=== PATIENT | female | born 1985 | race Caucasian/White ===

== ENCOUNTER 2016-12-17 10:22 | Emergency (ER) | payer MEDICAID ==
[~2016-12-17] VITALS: Ht 172.7 cm; Wt 87.0 kg
[~2016-12-17 10:22] MED LIST: PREN1TAB27 PO
[2016-12-17] MEDS ORDERED: ACETAMINOPHEN 500 MG TABLET ONE (11:45)
[2016-12-17] MEDS ORDERED: ACETAMINOPHEN 500 MG TABLET PO ONE (12:00)
[2016-12-17 12:22] VITALS: BP 110/57
== END 2016-12-17 12:24 | disposition home or self-care (01) ==
LOC: ED 11:54
DX: M54.5 Low back pain (principal); Z90.49 Acquired absence of other specified parts of digestive tract
CPT/HCPCS: 72110; 99284

== ENCOUNTER 2017-01-29 19:14 | Emergency (ER) | payer MEDICAID ==
[~2017-01-29] VITALS: Ht 170.2 cm; Wt 86.4 kg
[2017-01-29 19:19] VITALS: BP 111/75
[2017-01-29] MEDS ORDERED: LIDOCAINE 1%, 20ML ONE (19:49)
[2017-01-29] MEDS ORDERED: BUPIVACAINE 0.25% ONE (19:49)
[2017-01-29] MEDS ORDERED: LIDOCAINE 1%, 20ML SQ ONE (20:00)
[2017-01-29] MEDS ORDERED: BUPIVACAINE/PF-EPI 0.25% 1:200K SQ ONE (20:00)
== END 2017-01-29 20:20 | disposition home or self-care (01) ==
LOC: ED 20:14
DX: L02.214 Cutaneous abscess of groin (principal); Z88.6 Allergy status to analgesic agent; Z88.2 Allergy status to sulfonamides
CPT/HCPCS: 10060

== ENCOUNTER 2017-07-23 16:09 | Emergency (ER) | payer MEDICAID ==
[~2017-07-23] VITALS: Ht 167.6 cm; Wt 91.3 kg
[2017-07-23 16:13] VITALS: BP 116/68
[2017-07-23 16:50] LABS: HEMATOCRIT 43.2 % (34.6-47.8); HEMOGLOBIN 14.5 g/dL (11.7-16.4); WHITE BLOOD COUNT 10.3 x10^3/uL (3.4-10)
[2017-07-23 17:00] LABS: BLOOD UREA NITROGEN 10 mg/dL (7-18)
[2017-07-23 17:11] LABS: ASPARTATE AMINO TRANSFERASE 9 U/L (15-37)
== END 2017-07-23 17:58 | disposition left against medical advice (07) ==
LOC: ED 17:52
DX: R56.9 Unspecified convulsions (principal)
CPT/HCPCS: 36415; 80053; 80307; 84703; 85025; 99284; G0479

== ENCOUNTER 2017-08-12 11:53 | Emergency (ER) | payer MEDICAID ==
[~2017-08-12] VITALS: Ht 170.2 cm; Wt 90.4 kg
[2017-08-12 11:58] VITALS: BP 124/76
[2017-08-12] MEDS ORDERED: SODIUM CHLORIDE FLUSH 10ML SYR IVF ONE (12:30)
[2017-08-12 12:49] LABS: HEMATOCRIT 37.6 % (34.6-47.8); HEMOGLOBIN 12.5 g/dL (11.7-16.4)
[2017-08-12 13:01] LABS: BLOOD UREA NITROGEN 12 mg/dL (7-18)
[2017-08-12 13:02] LABS: ASPARTATE AMINO TRANSFERASE 5 U/L (15-37)
[2017-08-12] MEDS ORDERED: OMNIPAQUE 350 MG/ML, 100ML BOTTLE ONE (13:46)
[2017-08-12] MEDS ORDERED: KETOROLAC 30 MG/1 ML ONE ×2 (13:47)
[2017-08-12] MEDS ORDERED: KETOROLAC 30 MG/1 ML IVPush ONE (14:00)
== END 2017-08-12 14:38 | disposition home or self-care (01) ==
LOC: ED 13:05
DX: R10.84 Generalized abdominal pain (principal); R11.0 Nausea; K59.00 Constipation, unspecified; G40.909 Epilepsy, unspecified, not intractable, without status epilepticus; Z90.49 Acquired absence of other specified parts of digestive tract; Z88.2 Allergy status to sulfonamides; Z88.6 Allergy status to analgesic agent
CPT/HCPCS: 36415; 74177; 80053; 81003; 83690; 84703; 85025; 96374; 99285; J1885; Q9967

== ENCOUNTER 2017-11-06 14:04 | Emergency (ER) | payer MEDICAID ==
[~2017-11-06] VITALS: Ht 170.2 cm; Wt 81.0 kg
[2017-11-06] MEDS ORDERED: DEXAMETHASONE 4 MG TABLET PO ONE (14:30)
[2017-11-06] MEDS ORDERED: DEXAMETHASONE 4 MG TABLET ONE (15:01)
[2017-11-06 15:18] VITALS: BP 114/75
== END 2017-11-06 15:23 | disposition home or self-care (01) ==
LOC: ED 15:17
DX: J02.0 Streptococcal pharyngitis (principal); G40.909 Epilepsy, unspecified, not intractable, without status epilepticus; Z90.49 Acquired absence of other specified parts of digestive tract; Z88.6 Allergy status to analgesic agent; Z88.1 Allergy status to other antibiotic agents
CPT/HCPCS: 99283

== ENCOUNTER 2017-11-08 09:49 | Emergency (ER) | payer MEDICAID ==
[~2017-11-08] VITALS: Ht 170.2 cm; Wt 84.7 kg
[2017-11-08] MEDS ORDERED: DEXAMETHASONE 4 MG/ML, 5ML ONE (11:17)
[2017-11-08] MEDS ORDERED: KETOROLAC 30 MG/1 ML IVPush ONE (11:30)
[2017-11-08] MEDS ORDERED: AMPICILLIN/SULBACTAM 3 GM in SODIUM CHLORIDE 0.9% 100 ML IV ONE (12:00)
[2017-11-08] MEDS ORDERED: SODIUM CHLORIDE 0.9% 1,000ML IVBOLUS ONE (12:00)
[2017-11-08] MEDS ORDERED: DEXAMETHASONE 4 MG/ML, 1ML IVPush ONE (12:00)
[2017-11-08] MEDS ORDERED: SODIUM CHLORIDE FLUSH 10ML SYR IVF ONE (12:30)
[2017-11-08 12:46] VITALS: BP 106/70
== END 2017-11-08 12:48 | disposition home or self-care (01) ==
LOC: ED 11:51
DX: J02.0 Streptococcal pharyngitis (principal); F17.200 Nicotine dependence, unspecified, uncomplicated; Z90.49 Acquired absence of other specified parts of digestive tract; G40.909 Epilepsy, unspecified, not intractable, without status epilepticus
CPT/HCPCS: 96365; 96375; 99284; J0295; J1100; J7030

== ENCOUNTER 2018-02-07 05:25 | Emergency (ER) | payer MEDICAID ==
[~2018-02-07] VITALS: Ht 167.6 cm; Wt 82.3 kg
[2018-02-07 08:36] VITALS: BP 114/87
== END 2018-02-07 08:39 | disposition home or self-care (01) ==
LOC: ED 07:16
DX: S30.0XXA Contusion of lower back and pelvis, initial encounter (principal); F17.200 Nicotine dependence, unspecified, uncomplicated; W01.0XXA Fall on same level from slipping, tripping and stumbling without subsequent striking against object, initial encounter; Y93.89 Activity, other specified; Y99.8 Other external cause status; Y92.488 Other paved roadways as the place of occurrence of the external cause
CPT/HCPCS: 36415; 72110; 84703; 99285

== ENCOUNTER 2018-03-10 23:08 | Emergency (ER) | payer MEDICAID ==
[2018-03-10 23:20] VITALS: BP 120/75
[2018-03-11] MEDS ORDERED: ACETAMINOPHEN 325 MG TABLET PO ONE
[2018-03-11] MEDS ORDERED: METHOCARBAMOL 750 MG TABLET PO ONE
[2018-03-11 00:07] LABS: HCG UR SG 1.025 (1.003-1.030)
== END 2018-03-11 00:25 | disposition home or self-care (01) ==
LOC: ED 23:59
DX: G89.11 Acute pain due to trauma (principal); M25.512 Pain in left shoulder; Y04.0XXA Assault by unarmed brawl or fight, initial encounter; Y93.89 Activity, other specified; Y92.89 Other specified places as the place of occurrence of the external cause; Y99.8 Other external cause status
CPT/HCPCS: 81025; 99285

== ENCOUNTER 2018-03-17 13:03 | Emergency (ER) | payer MEDICAID ==
[~2018-03-17] VITALS: Ht 170.2 cm; Wt 85.8 kg
[2018-03-17] MEDS ORDERED: HYDROcodone/APAP 5/325 TABLET PO ONE (13:30)
[2018-03-17] MEDS ORDERED: DIAZEPAM 5 MG TABLET PO ONE (13:30)
[2018-03-17] MEDS ORDERED: DIAZEPAM 5 MG TABLET ONE (13:34)
[2018-03-17] MEDS ORDERED: HYDROcodone/APAP 5/325 TABLET ONE (13:34)
[2018-03-17 14:24] VITALS: BP 116/68
== END 2018-03-17 14:26 | disposition home or self-care (01) ==
LOC: ED 13:43
DX: M25.512 Pain in left shoulder (principal); G40.909 Epilepsy, unspecified, not intractable, without status epilepticus
CPT/HCPCS: 99283

== ENCOUNTER 2018-10-05 18:39 | Emergency (ER) | payer MEDICAID, OTHER ==
[~2018-10-05] VITALS: Ht 167.6 cm; Wt 88.0 kg
--- NOTE | 2018-10-05 18:57 | NUR ---
PT PRESENTED TO ED WITH LAW ENFORCEMENT. PER [facility], PT HAD A MEAL AT [facility] AND DIDNT PAY FOR IT OR HAD A STOLEN CREDIT CARD. PT THEN ONCE HAND CUFFED STATED SHE WAS HAVING ABD PAIN AND CRAMPING. PT STATES SHE IS 12 WEEKS . POSSIBLY. PT A&OX4. PT PLACED IN ROOM AND PLACED ON BP AND CONT. PULSE OXIMETER. ASSESSMENT COMPLETED. PT STATED SHE HAS HAD SPOTTING X 2 DAYS.
--- NOTE | 2018-10-05 18:58 | NUR ---
REPORT GIVEN TO JACINTO SIMMONS
--- NOTE | 2018-10-05 19:11 | NUR ---
receieved report from TROY Castro. call [employer] if patient medically cleared.
[2018-10-05 19:53] LABS: BASOPHILS # (AUTO) 0.04 x10^3/uL (0-0.1); BASOPHILS % (AUTO) 0 % (0-1); EOSINOPHILS % (AUTO) 2 % (1-7); LYMPHOCYTES # (AUTO) 3.02 x10^3/uL (1-3.4); LYMPHOCYTES % (AUTO) 33 % (22-44); MD NO; MEAN CORPUSCULAR HEMOGLOBIN 30.9 pg (27.0-34.8); MEAN CORPUSCULAR HGB CONC 34.5 g/dL (32.4-35.8); MEAN CORPUSCULAR VOLUME 89.7 fL (80-100); MEAN PLATELET VOLUME 10.1 fL (7.4-10.4); MONOCYTES # (AUTO) 0.97 x10^3/uL (0.2-0.8); MONOCYTES % (AUTO) 11 % (2-9); NEUTROPHILS # (AUTO) 5.03 x10^3/uL (1.8-6.8); NEUTROPHILS % (AUTO) 54 % (42-75); PLATELET COUNT 196 x10^3/uL (130-400); RED BLOOD COUNT 4.65 x10^6/uL (3.82-5.3); RED CELL DISTRIBUTION WIDTH 15.6 % (9.6-15.2)
[2018-10-05] MEDS ORDERED: ACETAMINOPHEN 500 MG TABLET ONE (19:58)
--- NOTE | 2018-10-05 19:59 | NUR ---
urine sent to lab. patient to Ultrasound.
[2018-10-05] MEDS ORDERED: ACETAMINOPHEN 500 MG TABLET PO ONE (20:00)
[2018-10-05 20:01] LABS: ALBUMIN 3.7 g/dL (3.4-5.0); ANION GAP 8 mmol/L (5-15); CALCIUM 8.7 mg/dL (8.5-10.1); CHLORIDE 110 mmol/L (98-107); CREATININE 0.73 mg/dL (0.55-1.02)
[2018-10-05 20:23] LABS: MICROSCOPIC INDICATED
[2018-10-05 20:27] LABS: CULTURE INDICATED? YES
--- NOTE | 2018-10-05 20:51 | NUR ---
back from Ultrasound.IV placed. medicated for pain and nausea.
[2018-10-05] MEDS ORDERED: ONDANSETRON 2MG/ML, 2ML ONE (20:52)
[2018-10-05] MEDS ORDERED: MORPHINE SULFATE 4 MG/ML, 1ML ONE (20:53)
[2018-10-05] MEDS ORDERED: ONDANSETRON 2MG/ML, 2ML IVPush ONE (21:00)
[2018-10-05] MEDS ORDERED: MORPHINE SULFATE 4 MG/ML, 1ML IVPush PRN (21:00)
--- NOTE | 2018-10-05 21:24 | NUR ---
back from CT scan. awaiting result.
--- NOTE | 2018-10-05 21:58 | NUR ---
re-evaluation done. [facility] notified patient for discharge.
--- NOTE | 2018-10-05 22:15 | NUR ---
[facility] here to take patient to [facility]. medically cleared. discharged with instruction given to officer and patient.
[2018-10-05 22:16] VITALS: BP 118/71
[2018-10-05] MEDS ORDERED: OMNIPAQUE 350 MG/ML, 100ML BOTTLE ONE (23:49)
== END 2018-10-05 22:19 | disposition home or self-care (01) ==
LOC: ED 18:48
DX: R10.30 Lower abdominal pain, unspecified (principal); G40.909 Epilepsy, unspecified, not intractable, without status epilepticus; Z90.49 Acquired absence of other specified parts of digestive tract; Z98.890 Other specified postprocedural states; Z88.6 Allergy status to analgesic agent; Z88.2 Allergy status to sulfonamides
CPT/HCPCS: 36415; 74177; 76856; 80048; 81001; 82040; 84702; 85025; 87086; 96374; 96375; 99284; J2405; Q9967